=== PATIENT | female | born 1960 | race Caucasian/White ===

== ENCOUNTER 2023-02-13 15:18 | Outpatient (REF) | payer MEDICARE, MEDICAID, SELFPAY ==
[2023-02-13 15:40] LABS: Bilirubin Urine NEGATIVE (NEGATIVE); Blood Urine NEGATIVE (NEGATIVE); Clarity Urine CLEAR (CLEAR); Color Urine LT. YELLOW (YELLOW); Glucose Urine UA NEGATIVE (NEGATIVE); Ketones Urine NEGATIVE (NEGATIVE); Leukocyte Esterase Urine TRACE (NEGATIVE); Nitrite Urine NEGATIVE (NEGATIVE); Protein Urine NEGATIVE (NEG/TRACE); Urobilinogen Urine 0.2 EU/dL (0.2-1.0)
[2023-02-13 15:41] LABS: Urine Microscopic Indicated YES
[2023-02-13 15:48] LABS: Bacteria Urine NONE SEEN #/HPF (NONE SEEN); Mucus Urine NONE SEEN (NONE SEEN); RBC Urine NONE SEEN #/HPF (0-2); WBC Urine 0-2 #/HPF (NONE SEEN)
[2023-02-13 15:49] LABS: Cast Seen? NONE SEEN #/LPF (NONE SEEN); Crystals Seen? None Seen #/HPF (None Seen); Squamous Epithelial Cell Urine MODERATE #/LPF (NONE/RARE)
== END 2023-02-13 15:19 | disposition home or self-care (01) ==
LOC: LAB 15:18
PROVIDERS: PCP Family Medicine; Visit Provider Family Medicine
DX: N39.0 Urinary tract infection, site not specified (principal)
CPT/HCPCS: 81001

== ENCOUNTER 2023-06-03 15:32 | Outpatient (REF) | payer MEDICARE, MEDICAID, SELFPAY | END 2023-06-03 15:33 | disposition home or self-care (01) | LOC: LAB 15:32 | PROVIDERS: PCP Family Medicine; Visit Provider Family Medicine | DX: N39.0 Urinary tract infection, site not specified (principal) | CPT/HCPCS: 87086; 87150; 87186 ==

== ENCOUNTER 2024-01-07 15:33 | Emergency (ER) | payer MEDICARE, MEDICAID, SELFPAY ==
[2024-01-07 15:39] VITALS: BP 154/90; PULSE 70; TEMP 36.6; O2SAT 99; BMI 40.3
--- OUTSIDE RECORDS SUMMARY | 2024-01-07 15:49 | XMS_ITS | CCD ---
Author Organization [facility] Care Team Providers Care Dry Cleaner Hand Name Role Phone Shelby Winston Unavailable Fabrizio Vidalhanie Unavailable Germain Sainz MD Primary Care Provider SHARON HARRISON Referring Unavailable DEFGERMAIN TRAVIS Primary Care Unavailable DEFRANCE, DR GROVES Admitting Unavailable DEFRANCE, DR GROVES Attending Unavailable DEFRANCE, DR GROVES Primary Care Unavailable DEFRANCE, DR GROVES Consulting Unavailable DEFRANCE, DR GROVES Admitting Unavailable DEFRANCE, DR GROVES Attending Unavailable DEFRANCE, DR GROVES Primary Care Unavailable DEFRANCE, DR GROVES Consulting Unavailable DEFRANCE, DR GROVES Admitting Unavailable DEFRANCE, DR GROVES Attending Unavailable DEFRANCE, DR GROVES Primary Care Unavailable DEFRANCE, DR GROVES Consulting Unavailable DEFRANCE, DR GROVES Primary Care Unavailable HAY, DR BOGGS Admitting Unavailable HAY, DR BOGGS Attending Unavailable HAY, DR BOGGS Consulting Unavailable DEFRANCE, DR GROVES Primary Care Unavailable HAY, DR BOGGS Admitting Unavailable HAY, DR BOGGS Attending Unavailable GRECHNY, MARTY FAROOQ Consulting Unavailable DEFRANCE, DR GROVES Primary Care Unavailable HAY, DR BOGGS Admitting Unavailable HAY, DR BOGGS Attending Unavailable ZIEBER, DR RUSSELL Flynn Consulting Unavailable HAY, DR BOGGS Consulting Unavailable Fransisco Khalil Unavailable Unavailable Primary Care Provider Unavailabl e PROVIDER, UNKNOWN Admitting Unavailable PROVIDER, UNKNOWN Attending Unavailable Germain Sainz MD Primary Care Provider GERMAIN SAINZ Referring Unavailable DEFTHADDEUS, GERMAIN Camacho Primary Care Unavailable DEFGERMAIN TRAVIS Referring Unavailable DEFRANCE, GERMAIN Camacho Primary Care Unavailable DEFGERMAIN TRAVIS Referring Unavailable DEFRANCE, GERMAIN T Primary Care Unavailable DEFRANCE, GERMAIN Camacho Attending Unavailable DEFRANCE, GERMAIN Doug Referring Unavailable DEFRANCE, GERMAIN Doug Primary Care Unavailable DEFRANCE, GERMAIN Doug Attending Unavailable DEFRANCE, GERMAIN Camacho Referring Unavailable DEFRANCE, GERMAIN Doug Primary Care Unavailable DEFRANCE, GERMAIN Doug Attending Unavailable DEFRANCE, GERMAIN Doug Referring Unavailable DEFRANCE, GERMAIN Camacho Primary Care Unavailable TIFFANIE RAMOS Attending Unavailable DEFRANCE, GERMAIN Doug Referring Unavailable DEFRANCE, GERMAIN Camacho Primary Care Unavailable KRISSY MONTOYA Attending Unavailable DEFRANCE, GERMAIN oDug Referring Unavailable DEFRANCE, GERMAIN Camacho Primary Care Unavailable Medications Current Medications Medication Drug Class(es) Dates Sig (Normalized) Sig (Original) acetaminophen 500 mg oral tablet (4 sources) Start: 02-28-2023 take 2 tablets by mouth every six hours as needed for pain and headache and fever acetaminophen (MAPAP EXTRA STRENGTH) 500 mg tablet Take 2 tablets (1,000 mg total) by mouth every 6 (six) hours as needed for pain, headaches or fever. TAKE 2 TABLETS (1000MG) BY MOUTH EVERY 6 HOURS NEEDED (FOR A TEMP GREATER THAN 100 DEGREES OR PAIN) (MAX 8 PER DAY) 240 tablet 0 02/28/2023 Active bacitracin 0.5 unt/mg topical ointment (1 source) Start: 11-27-2021 End: 12-07-2021 bacitracin (ANTIBIOTIC) 500 UNIT/GM ointment Indications: Lesion of labia Apply topically 2 times daily. 28 g 2 11/27/2021 12/07/2021 Active busPIRone hydrochloride 15 mg oral tablet (13 sources) Start: 10-07-2022 take 1 tablet by mouth in the morning, then take 1 tablet by mouth at bedtime busPIRone (BUSPAR) 15 mg tablet Take 1 tablet (15 mg total) by mouth in the morning and 1 tablet (15 mg total) before bedtime. 0 10/07/2022 Active Start: 03-26-2021 take 1 tablet by luciano th in the morning, then take 1 tablet by mouth at bedtime busPIRone (BUSPAR) 10 mg tablet Take 1 tablet (10 mg total) by mouth in the morning and 1 tablet (10 mg total) before bedtime. 0 03/26/2021 Active busPIRone HCl Ac tive citalopram 40 mg oral tablet (9 sources) Serotonin Reuptake Inhibitor Start: 11-05-2021 citalopram (CELEXA) 40 MG tablet Citalopram [place] bromide Active 12 hr dextromethorphan hydrobromide 30 mg / guaiFENesin 600 mg extended release oral tablet (1 source) Uncompetitive E-vnfxtr-L-aspartate Receptor Antagonist, Sigma-1 Agonist Start: 08-21-2021 take 1 tablet by mouth every twelve hours Mucinex DM 30-600 MG 1 tablet as needed Orally every 12 hrs for 5 day(s) July, Active hydroCHLOROthiazide 25 mg / triamterene 37.5 mg oral capsule (1 source) Potassium-sparing Diuretic, Thiazide Diuretic Start: 09-28-2021 take 1 capsule by mouth once daily triamterene-hydro CHLOROthiazide (DYAZIDE) 37.5-25 MG per capsule Take 1 capsule by mouth daily 0 09/28/2021 Active hydrocortisone 25 mg/ml topical cream (4 sources) Corticosteroid Start: 05-27-2023 hydrocortisone (ANUSOL-HC) 2.5 % rectal cream Apply topically twice a day 28 g 5 05/27/2023 Active ibuprofen 800 mg oral tablet (4 sources) Nonsteroidal Anti-inflammatory Drug Start: 02-28-2023 take 1 tablet by mouth every six hours as needed for pain ibuprofen (MOTRIN) 800 mg tablet Take 1 tablet (800 mg total) by mouth every 6 (six) hours as needed for pain. 30 tablet 1 02/28/2023 Active lamoTRIgine 100 mg oral tablet (9 sources) Mood Stabilizer, Anti-epileptic Agent take 2 tablets by mouth once daily lamoTRIgine (LaMICtal) 100 mg tablet Take 2 tablets (200 mg total) by mouth nightly. 0 Active lamoTRIgine Acti ve levothyroxine sodium 0.075 mg oral tablet (9 sources) l-Thyroxine Start: 01-28-2023 take 1 tablet by mouth once daily levothyroxine (SYNTHROID, LEVOTHROID) 75 MCG tablet GIVE 1 TABLET BY MOUTH ONCE DAILY (730A) 90 tablet 1 01/28/2023 Active Start: 08-29-2021 take 1 tablet by luciano th once daily levothyroxine (SYNTHROID) 75 MCG tablet GIVE 1 TABLET BY MOUTH ONCE DAILY (730A) 0 08/29/2021 Active Levothyroxine So dium Active losartan potassium 50 mg oral tablet (14 sources) Angiotensin 2 Receptor Shorty Start: 03-13-2023 take 2 tablets by mouth in the morning losartan (COZAAR) 25 mg tablet Take 2 tablets (50 mg total) by mouth in the morning. 0 03/13/2023 Active Start: 03-13-2023 End: 06-14-2023 take 1 tablet by mouth in the morning losartan (COZAAR) 50 mg tablet Take 1 tablet (50 mg total) by mouth in the morning. 90 tablet 1 06/14/2023 Active Start: 08-29-2021 take 1 tablet by luciano th once daily losartan (COZAAR) 25 MG tablet Take 25 mg by mouth daily 0 08/29/2021 Active Losartan Potassi um Active lurasidone hydrochloride 60 mg oral tablet (9 sources) Atypical Antipsychotic Start: 03-05-2022 LATUDA 60 mg tablet tablet 1 tablet (60 mg total) once daily at bedtime. 0 03/05/2022 Active Start: 11-05-2021 LATUDA 80 MG T ABS tablet Latuda Active Melatonin (4 sources) Melatonin Active 24 hr metoprolol succinate 100 mg extended release oral tablet (10 sources) beta-Adrenergic Shorty Start: 02-26-2023 End: 06-14-2023 take 1 tablet by mouth every twenty-four hours in the morning metoprolol succinate XL (TOPROL XL) 100 mg 24 hr tablet Take 1 tablet (100 mg total) by mouth in the morning. 90 tablet 1 06/14/2023 Active Start: 09-28-2021 take 1 tablet by luciano th once daily metoprolol succinate (TOPROL XL) 100 MG extended release tablet Take 100 mg by mouth daily 0 09/28/2021 Active Metoprolol Succi jane Active miscellaneous medical supply misc (4 sources) Start: 10-19-2020 miscellaneous medical supply misc Indications: Traumatic skin ulcer, limited to breakdown of skin (CMS-HCC) Biatain silicone - Apply to wounds every 3 days or as needed. 1 each 1 10/19/2020 Active nitrofurantoin, macrocrystals 25 mg / nitrofurantoin, monohydrate 75 mg oral capsule (1 source) Nitrofuran Antibacterial Start: 06-06-2023 End: 06-13-2023 take 1 capsule by mouth in the morning, then take 1 capsule by mouth at bedtime nitrofurantoin, macrocrystal-monoh ydrate, (MACROBID) 100 mg capsule Take 1 capsule (100 mg total) by mouth in the morning and 1 capsule (100 mg total) before bedtime. Do all this for 7 days. 14 capsule 0 06/06/2023 06/13/2023 Active nystatin 100 unt/mg topical powder (4 sources) Polyene Antifungal Start: 11-19-2022 nystatin (NYSTOP) powder Apply topically 2 (two) times a day. 60 g 5 11/19/2022 Active Polyethylene Glycols (4 sources) Polyethylene Glycol Active predniSONE 20 mg oral tablet (1 source) Start: 08-21-2021 take 1 tablet by mouth twice daily at mealtime predniSONE 20 MG 1 tablet Orally twice a day with food for 5 days July, Active simvastatin 40 mg oral tablet (10 sources) HMG-CoA Reductase Inhibitor Start: 02-26-2023 End: 06-14-2023 take 1 tablet by mouth once daily simvastatin (ZOCOR) 40 mg tablet Take 1 tablet (40 mg total) by mouth nightly. 90 tablet 1 06/14/2023 Active Start: 09-28-2021 take 1 tablet by luciano th once daily simvastatin (ZOCOR) 40 MG tablet Take 40 mg by mouth nightly 0 09/28/2021 Active Simvastatin Acti ve SSD (4 sources) SSD Active sulfamethoxazole 800 mg / trimethoprim 160 mg oral tablet (1 source) Dihydrofolate Reductase Inhibitor Antibacterial, Sulfonamide Antimicrobial Start: End: take 1 tablet by mouth once in the morning sulfamethoxazole-t rimethoprim (BACTRIM DS) 800-160 mg per tablet Take 1 tablet by mouth in the morning and 1 tablet before bedtime. Do all this for 7 days. 14 tablet 0 06/06/2023 06/13/2023 Active tobramycin 3 mg/ml ophthalmic solution (1 source) Aminoglycoside Antibacterial Start: take 1 drop(s) into the eye(s) every four hours Tobramycin 0.3 % 1 drop into affected eye Ophthalmic every 4 hrs for 7 days May, Active Triamterene (4 sources) Potassium-sparing Diuretic Triamterene Active divalproex sodium 125 mg delayed release oral capsule (9 sources) Mood Stabilizer, Anti-epileptic Agent Start: take 3 capsules by mouth in the morning, then take 3 capsules by mouth at bedtime, then take 3 capsules by mouth twice daily divalproex sprinkle (DEPAKOTE SPRINKLE) 125 mg capsule Take 3 capsules (375 mg total) by mouth in the morning and 3 capsules (375 mg total) before bedtime. 3 pills bid. 0 04/10/2022 Active divalproex (DEPA KOTE SPRINKLE) 125 MG capsule Take 500 mg by mouth 2 times daily 0 Active Divalproex Sodiu m Active zinc oxide-hydrophilic wound dressing (TRIAD WOUND DRESSING) paste paste (4 sources) Start: 11-19-2022 zinc oxide-hyd rophilic wound dressing (TRIAD WOUND DRESSING) paste paste Apply to affected areas bid 170 g 5 11/19/2022 Active Problems Active Problems Problem Classification Problem Date Documented Da te Episodic/Chronic Chronic ulcer of skin (5 sources) Traumatic skin ulcer; Translations: [Non-pressure chronic ulcer of skin of other sites limited to breakdown of skin] Onset: 10-19-2020 07-20-2022 Chronic Developmental disorders (8 sources) Unspecified intellectual disabilities; Translations: [Intellectual disability] Onset: 01-02-2017 07-20-2022 Chronic Disorders of lipid metabolism (12 sources) Hyperlipidemia; Translations: [Hyperlipidemia, unspecified] Onset: 01-02-2017 07-20-2022 Chronic Essential hypertension (12 sources) Benign essential hypertension; Translations: [Essential (primary) hypertension] Onset: 01-02-2017 07-20-2022 Chronic Fever of unknown origin (1 source) Fever Onset: 12-24-2023 Episodic Genitourinary symptoms and ill-defined conditions (5 sources) Nocturnal enuresis; Translations: [Nocturnal enuresis] Onset: 01-02-2021 07-20-2022 Chronic Inflammation; infection of eye (except that caused by tuberculosis or sexually transmitteddisease) (1 source) Other mucopurulent conjunctivitis, left eye Episodic Mood disorders (5 sources) Episodic mood disorder; Translations: [Unspecified mood [affective] disorder] Onset: 01-02-2017 07-20-2022 Chronic Other aftercare (2 sources) Other exterminator helper termite (current) drug therapy; Translations: [OTH E/M ENGINEER CURRENT DRUG THERAPY] Onset: 10-06-2021 Episodic Other circulatory disease (1 source) Hemorrhage, not elsewhere classified Episodic Other female genital disorders (1 source) Lesion of labia; Translations: [Other specified noninflammatory disorders of vulva and perineum] Episodic Other gastrointestinal disorders (1 source) Dysphagia, oral phase; Translations: [Dysphagia, oral phase] Onset: 10-23-2023 Episodic Other nutritional; endocrine; and metabolic disorders (5 sources) Severe obesity; Translations: [Morbid (severe) obesity due to excess calories] Onset: 2016 07-20-2022 Chronic Other nutritional; endocrine; and metabolic disorders (1 source) Obesity, unspecified; Translations: [Obesity, unspecified] Onset: 11-20-2023 Chronic Other screening for suspected conditions (not mental disorders or infectious disease) (5 sources) Echocardiogram abnormal; Translations: [Abnormal findings on diagnostic imaging of heart and coronary circulation] Onset: 06-06-2022 07-20-2022 Episodic Other upper respiratory disease (1 source) Pain in throat Onset: 12-24-2023 Episodic Other upper respiratory infections (1 source) Acute maxillary sinusitis, unspecified; Translations: [Acute maxillary sinusitis, unspecified] Onset: 12-24-2023 Episodic Residual codes; unclassified (5 sources) Obstructive sleep apnea syndrome; Translations: [Obstructive sleep apnea (adult) (pediatric)] Onset: 2016 07-20-2022 Chronic Residual codes; unclassified (1 source) Obstructive sleep apnea (adult) (pediatric); Translations: [Obstructive sleep apnea (adult) (pediatric)] Onset: 2016 Chronic Residual codes; unclassified (1 source) Sleep apnea Onset: 11-20-2023 Chronic Thyroid disorders (7 sources) Acquired hypothyroidism; Translations: [Hypothyroidism, unspecified] Onset: 01-02-2017 07-20-2022 Chronic Unclassified (1 source) PERSONAL HISTORY OF COVID-19; Translations: [PERSONAL HISTORY OF COVID-19] Onset: 10-06-2021 Unclassified (1 source) Annual Exam Onset: 10-18-2023 Unclassified (1 source) Routine Check up Onset: 03-19-2023 Urinary tract infections (4 sources) Urinary tract infection, site not specified; Translations: [UTI SITE NOT SPECIFIED] Onset: 05-09-2022 Episodic Past or Other Problems Problem Classification Problem Date Documented Date Episodic/Chronic Chronic obstructive pulmonary disease and bronchiectasis (1 source) Bronchitis, not specified as acute or chronic Onset: 08-21-2021 Resolved: 08-21-2021 Episodic E Codes: Fall (1 source) Unspecified fall, initial encounter; Translations: [UNSPECIFIED FALL INITIAL ENCOUNTER] Onset: 10-06-2021 Episodic Fluid and electrolyte disorders (2 sources) Hypo-osmolality and hyponatremia; Translations: [Dehydration] Onset: 06-14-2021 Episodic Immunizations and screening for infectious disease (1 source) Contact with and (suspected) exposure to other viral communicable diseases Onset: 08-21-2021 Resolved: 08-21-2021 Episodic Inflammatory diseases of female pelvic organs (5 sources) Acute vulvitis; Translations: [Ulceration of vulva] Onset: 06-13-2021 Episodic Mood disorders (4 sources) Mood disorders Onset: 03-19-2023 Resolved: 06-18-2023 03-19-2023 Other female genital disorders (1 source) Other specified noninflammatory disorders of vulva and perineum Onset: 06-12-2021 Resolved: 06-12-2021 Episodic Residual codes; unclassified (5 sources) Edema, generalized; Translations: [Generalized edema] Onset: 01-22-2017 07-20-2022 Episodic Skin and subcutaneous tissue infections (5 sources) Cellulitis of left lower limb; Translations: [Cellulitis of left lower limb] Onset: 03-20-2021 07-20-2022 Episodic Superficial injury; contusion (5 sources) Contusion of right knee, initial encounter; Translations: [Contusion of right front wall of thorax, initial encounter] Onset: 10-05-2021 Episodic Unclassified (4 sources) Onset: 08-01-2020 08-01-2020 Results Test Name Value Interpretation Reference Range Facility CBC AND AUTO DIFFon 11-20-19 ABSOLUTE BASOPHIL 0.0 X10E9/L Normal 0.0-0.2 [facility] Comment on above: Performed By: #### 2 345-7, 80354-2, LIVR, 4086-5, CBCA #### [facility] ([id number]) [address], [address] [place] [address] ABSOLUTE NEUTROPHIL 3.3 X10E9/L Normal 1.5-6.6 [facility] Comment on above: Performed By: #### 2 345-7, 20375-4, LIVR, 6-5, CBCA #### [facility] ([id number]) [address], [address] [place] [address] Basophils/100 WBC (Bld) 0.5 % Normal [facility] Comment on above: Performed By: #### 2 345-7, 67359-5, LIVR, 4085-5, CBCA #### [facility] ([id number]) [address], [address] [place] [address] Eosinophils (Bld) [#/Vol] 0.1 10*3/uL Normal 0.0-0.4 [facility] Comment on above: Performed By: #### 2 345-7, 71027-0, LIVR, 4085-5, CBCA #### [facility] ([id number]) [address], [address] [place] [address] Eosinophils/100 WBC (Bld) 1.6 % Normal [facility] Comment on above: Performed By: #### 2 345-7, 79035-8, LIVR, 4085-5, CBCA #### [facility] ([id number]) [address], [address] [place] [address] Erythrocyte distribution width (RBC) [Ratio] 14.5 % Normal 11.5-15.0 [facility] Comment on above: Performed By: #### 2 345-7, 87256-7, LIVR, 4085-5, CBCA #### [facility] ([id number]) [address], [address] [place] [address] Hematocrit (Bld) [Volume fraction] 38.3 % Normal 35-47 [facility] Comment on above: Performed By: #### 2 345-7, 45640-7, LIVR, 4086-5, CBCA #### [facility] ([id number]) [address], [address] [place] [address] Hemoglobin (Bld) [Mass/Vol] 12.4 g/dL Normal 11.7-15.5 [facility] Comment on above: Performed By: #### 2 345-7, 36936-2, LIVR, 6-5, CBCA #### [facility] ([id number]) [address], [address] [place] [address] Lymphocytes (Bld) [#/Vol] 1.7 10*3/uL Normal 1.0-3.5 [facility] Comment on above: Performed By: #### 2 345-7, 38956-7, LIVR, 6-5, CBCA #### [facility] ([id number]) [address], [address] [place] [address] Lymphocytes/100 WBC (Bld) 29.8 % Normal [facility] Comment on above: Performed By: #### 2 345-7, 07112-6, LIVR, 4085-5, CBCA #### [facility] ([id number]) [address], [address] [place] [address] MCH (RBC) [Entitic mass] 28.1 pg Normal 27-34 [facility] Comment on above: Performed By: #### 2 345-7, 07005-2, LIVR, 4086-5, CBCA #### [facility] ([id number]) [address], [address] [place] [address] MCHC (RBC) [Mass/Vol] 32.4 g/dL Normal 32-36 [facility] Comment on above: Performed By: #### 2 345-7, 16812-3, LIVR, 4086-5, CBCA #### [facility] ([id number]) [address], [address] [place] [address] MCV (RBC) [Entitic vol] 87 fL Normal 80-100 [facility] Comment on above: Performed By: #### 2 345-7, 00546-5, LIVR, 4086-5, CBCA #### [facility] ([id number]) [address], [address] [place] [address] Monocytes (Bld) [#/Vol] 0.5 10*3/uL Normal 0-0.9 [facility] Comment on above: Performed By: #### 2 345-7, 56656-4, LIVR, 4085-5, CBCA #### [facility] ([id number]) [address], [address] [place] [address] Monocytes/100 WBC (Bld) 9.1 % Normal [facility] Comment on above: Performed By: #### 2 345-7, 31687-6, LIVR, 4085-5, CBCA #### [facility] ([id number]) [address], [address] [place] [address] Neutrophils/100 WBC (Bld) 59.0 % Normal [facility] Comment on above: Performed By: #### 2 345-7, 69176-8, LIVR, 4085-5, CBCA #### [facility] ([id number]) [address], [address] [place] [address] Platelet mean volume (Bld) [Entitic vol] 7.3 fL Normal 7-12 [facility] Comment on above: Performed By: #### 2 345-7, 05770-1, LIVR, 4086-5, CBCA #### [facility] ([id number]) [address], [address] [place] [address] Platelets (Bld) [#/Vol] 302 10*3/uL Normal 150-450 [facility] Comment on above: Performed By: #### 2 345-7, 99450-2, LIVR, 4086-5, CBCA #### [facility] ([id number]) [address], [address] [place] [address] RBC COUNT 4.41 X10E12/L Normal 3.80-5.20 [facility] Comment on above: Performed By: #### 2 345-7, 61777-9, LIVR, 4086-5, CBCA #### [facility] ([id number]) [address], [facility] [address] [place] [address] WBC (Bld) [#/Vol] 5.6 10*3/uL Normal 4.0-11.0 [facility] Comment on above: Performed By: #### 2 345-7, 27949-5, LIVR, 408-5, CBCA #### [facility] ([id number]) [address], [address] [place] [address] GLUCOSEon 11-20-2023 Glucose [Mass/Vol] 94 mg/dL Normal 65-99 [facility] Comment on above: Performed By: #### 2 345-7, 04572-1, LIVR, 4085-5, CBCA #### [facility] ([id number]) [address], [address] [place] [address] LIVER PANELon 11-20-2023 Albumin [Mass/Vol] 4.2 g/dL Normal 3.2-5.3 [facility] Comment on above: Performed By: #### 2 345-7, 67378-1, LIVR, 4086-5, CBCA #### [facility] ([id number]) [address], [address] [place] [address] ALP [Catalytic activity/Vol] 64 U/L Normal 39-130 [facility] Comment on above: Performed By: #### 2 345-7, 57529-0, LIVR, 4086-5, CBCA #### [facility] ([id number]) [address], [address] [place] [address] ALT [Catalytic activity/Vol] 15 U/L Normal 0-31 [facility] Comment on above: Performed By: #### 2 345-7, 26207-4, LIVR, 4086-5, CBCA #### [facility] ([id number]) [address], [address] [place] [address] AST [Catalytic activity/Vol] 20 U/L Normal 0-41 [facility] Comment on above: Performed By: #### 2 345-7, 31791-9, LIVR, 4086-5, CBCA #### [facility] ([id number]) [address], [address] [place] [address] Bilirubin [Mass/Vol] 0.5 mg/dL Normal 0.3-1.2 [facility] Comment on above: Performed By: #### 2 345-7, 89552-1, LIVR, 4086-5, CBCA #### [facility] ([id number]) [address], [address] [place] [address] Bilirubin.direct [Mass/Vol] 0.1 mg/dL Normal 0.0-0.4 [facility] Comment on above: Performed By: #### 2 345-7, 68955-9, LIVR, 4086-5, CBCA #### [facility] ([id number]) [address], [address] [place] [address] Protein [Mass/Vol] 7.1 g/dL Normal 6.0-8.0 [facility] Comment on above: Performed By: #### 2 345-7, 51113-1, LIVR, 4086-5, CBCA #### [facility] ([id number]) [address], [address] [place] [address] Lipid 1996 panelon 08-21-202 4 Cholesterol [Mass/Vol] 195 mg/dL Normal 150-200 [facility] Comment on above: Performed By: #### 2 345-7, 82149-2, LIVR, 4086-5, CBCA #### [facility] ([id number]) [address], [address] [place] [address] Cholesterol in HDL [Mass/Vol] 65 mg/dL Normal >39 [facility] Comment on above: Result Comment: HDL <40 mg/dL - High Risk HDL > or = 40mg/dL- Desirable HDL >60 mg/dL - Negative Risk Performed By: #### 2 345-7, 28592-8, LIVR, 4086-5, CBCA #### [facility] ([id number]) [address], [address] [place] [address] Cholesterol in LDL [Mass/Vol] 103 mg/dL Normal <130 [facility] Comment on above: Result Comment: LDL <100 mg/dL - Desirable LDL >160 mg/dL - High Risk Performed By: #### 2 345-7, 79926-2, LIVR, 4086-5, CBCA #### [facility] ([id number]) [address], [address] [place] [address] Cholesterol in VLDL [Mass/Vol] 27 mg/dL Normal 0-30 [facility] Comment on above: Performed By: #### 2 345-7, 23181-7, LIVR, 4086-5, CBCA #### [facility] ([id number]) [address], [address] [place] [address] CHOLESTEROL:HDL 3.0 Normal 1.0-5.0 [facility] Comment on above: Performed By: #### 2 345-7, 14364-2, LIVR, 4086-5, CBCA #### [facility] ([id number]) [address], [address] [place] [address] Triglyceride [Mass/Vol] 134 mg/dL Normal 27-150 [facility] Comment on above: Performed By: #### 2 345-7, 06882-9, LIVR, 4086-5, CBCA #### [facility] ([id number]) [address] [place] [address] Valproate [Mass/Vol]on 11-19 VALPROIC ACID 46 ug/mL Low 50-100 [facility] Comment on above: Performed By: #### 2 345-7, 75390-0, LIVR, 4086-5, CBCA #### [facility] ([id number]) [address], [address] [place] [address] FL SWALLOW MOTILITY FUNCTION on 10-23-2023 FL SWALLOW MOTILITY FUNCTION FL SWALLOW MOTILITY FUNCTION History: Choking episodes. Dysphasia. Exam/Technique: The patient ingested multiple preparations of barium under direct fluoroscopic observation. The examination was videotaped. The study was performed in conjunction with the speech pathology department. Findings: 2.8 minutes of fluoroscopy time was utilized. 16 fluoroscopic images obtained Patient demonstrated pocketing of barium pudding. Additional swallows with barium coated fruit resulted in less pocketing. No episodes of penetration or aspiration demonstrated with liquid or solid consistencies. IMPRESSION: * No episodes of penetration or aspiration. * Pocketing of content within the right side of the mouth * Please also see the speech pathology report for additional information and recommendations. Finalized by Matthew Nguyễn DO on 10/23/2023 11:37 AM Normal [facility] COMPREHENSIVE METABOLIC PANE Tommy 04-02-2023 Albumin [Mass/Vol] 4.1 g/dL Normal 3.2-5.3 [facility] Comment on above: Performed By: #### C MP #### [facility] ([id number]) [address], [address] [place] [address] ALP [Catalytic activity/Vol] 60 U/L Normal 39-130 [facility] Comment on above: Performed By: #### C MP #### [facility] ([id number]) [address], [address] [place] [address] ALT [Catalytic activity/Vol] 10 U/L Normal 0-31 [facility] Comment on above: Performed By: #### C MP #### [facility] ([id number]) [address], [address] [place] [address] Anion gap [Moles/Vol] 9 mmol/L Normal 5-15 [facility] Comment on above: Performed By: #### C MP #### [facility] ([id number]) [address], [address] [place] [address] AST [Catalytic activity/Vol] 15 U/L Normal 0-41 [facility] Comment on above: Performed By: #### C MP #### [facility] ([id number]) [address], [address] [place] [address] Bilirubin [Mass/Vol] 0.4 mg/dL Normal 0.3-1.2 [facility] Comment on above: Performed By: #### C MP #### [facility] ([id number]) [address], [address] [place] [address] Calcium [Mass/Vol] 9.5 mg/dL Normal 8.5-10.5 [facility] Comment on above: Performed By: #### C MP #### [facility] ([id number]) [address], [address] [place] [address] Chloride [Moles/Vol] 100 mmol/L Normal 98-109 [facility] Comment on above: Performed By: #### C MP #### [facility] ([id number]) [address], [address] [place] [address] CO2 [Moles/Vol] 27 mmol/L Normal 22-32 [facility] Comment on above: Performed By: #### C MP #### [facility] ([id number]) [address], [address] [place] [address] Creatinine [Mass/Vol] 1.27 mg/dL High 0.40-1.00 [facility] Comment on above: Result Comment: METH OD TRACEABLE TO IDMS STANDARD Performed By: #### C MP #### [facility] ([id number]) [address], [address] [place] [address] GFR/1.73 sq M.predicted among non-blacks MDRD (S/P/Bld) [Vol rate/Area] 48 mL/min/{1.73_m2} Low >59 [facility] Comment on above: Result Comment: Reported eGFR is based on the CKD-EPI 2020 equation that does not use a race coefficient. Performed By: #### C MP #### [facility] ([id number]) [address], [address] [place] [address] Glucose [Mass/Vol] 95 mg/dL Normal 65-99 [facility] Comment on above: Performed By: #### C MP #### [facility] ([id number]) [address] [place] [address] Potassium [Moles/Vol] 4.7 mmol/L Normal 3.5-5.0 [facility] Comment on above: Performed By: #### C MP #### [facility] ([id number]) [address], [address] [place] [address] Protein [Mass/Vol] 7.0 g/dL Normal 6.0-8.0 [facility] Comment on above: Performed By: #### C MP #### [facility] ([id number]) [address], [address] [place] [address] Sodium [Moles/Vol] 136 mmol/L Normal 134-146 [facility] Comment on above: Performed By: #### C MP #### [facility] ([id number]) [address], [address] [place] [address] Urea nitrogen [Mass/Vol] 15 mg/dL Normal 5-27 [facility] Comment on above: Performed By: #### C MP #### [facility] ([id number]) [address], [address] [place] [address] Progress Noteson 07-20-2022 Pan Dumper Authentication Interface Message Text ----- Wednesday, July 20, 2022 at 10:18:08 AM ----- ----- Provider: Jerrica Rodriguez DDS -- Clinic: [place] [address] ----- OR EVALUATION Patient presents for evaluation to determine best course of treatment due to history of Hypertension, Episodic mood disorder, MAZIN, intellectual disability. Patient is accompanied by caregiver for today's appointment. Patient partially cooperated for a partial intraoral exam. Clinical findings: Decay, Gingivitis and Missing teeth It is best suited that this patient have full comprehensive examination, radiographs and treatment completed in the OR setting. Explained that the patient will be added to our OR waiting list following receipt of signed general consent form, and the legal guardian will be contacted once a time slot becomes available. Legal Guardian: Legal Guardian: Inna Hill Beater Out: Haleigh Rich , Ext. 110 NOTE: Patient will need restorations and dental cleaning. Next Visit: OR Normal The [employer] [facility] UA (CLEAN/CATCH) SUPPORT ANALYST/MICRO I F IND.on 05-09-2022 Bilirubin Ql (U) Negative Normal NEGATIVE [facility] Comment on above: Performed By: #### U ACSIND #### Laboratory [address] [place] [address] Dr. Haseeb Novoa Clarity (U) CLEAR Normal CLEAR The Comment on above: Performed By: #### U ACSIND #### Laboratory [address] [address] [address] Haseeb Novoa Color (U) LT. YELLOW Normal YELLOW [facility] Comment on above: Performed By: #### U ACSIND #### Laboratory [address] [address] [address] Haseeb Novoa Glucose Ql (U) Negative Normal NEGATIVE [facility] Comment on above: Performed By: #### U ACSIND #### Laboratory [address] [address] [address] Haseeb Novoa Hemoglobin Ql (U) Negative Normal NEGATIVE [facility] Comment on above: Performed By: #### U ACSIND #### Laboratory [address] [address] [address] Haseeb Novoa Ketones Ql (U) Negative Normal NEGATIVE [place] Comment on above: Performed By: #### U ACSIND #### Laboratory [address] [address] [address] Haseeb Novoa LEUKOCYTES Negative Normal NEGATIVE [facility] Comment on above: Performed By: #### U ACSIND #### Laboratory [address] [address] [address] Haseeb Novoa Nitrite Ql (U) Negative Normal NEGATIVE [place] Comment on above: Performed By: #### U ACSIND #### Laboratory [address] [address] [address] Haseeb Novoa pH (U) 6.0 [pH] Normal 5-9 The Comment on above: Performed By: #### U ACSIND #### Laboratory [address] [address] [address] Haseeb Novoa SPEC GRAVITY 1.010 Normal 1.005-<=1.025 [facility] Comment on above: Performed By: #### U ACSIND #### Laboratory [address] [address] [address] Haseeb Novoa UA PROTEIN Negative Normal NEGATIVE/ TRACE The Comment on above: Performed By: #### U ACSIND #### Laboratory [address] [address] [address] Haseeb Novoa UR MICRO IND NOT INDICATED Normal [facility] Comment on above: Performed By: #### U ACSIND #### Laboratory [address] [place] [address] Dr. Haseeb Novoa Urobilinogen Qn (U) 0.2 {Buddy'U}/dL Normal 0.2 - 1. 0 [facility] Comment on above: Performed By: #### U ACSIND #### Laboratory [address] [place] [address] Dr. Haseeb Novoa Cult,Genitalon 11-30-2021 Cult,Genital Specimen Description .VAGINA Culture NORMAL URO-GENITAL MIA NEGATIVE FOR NEISSERIA GONORRHOEAE Report Status FINAL 11/30/2021 Normal [facility] Comment on above: Performed By: #### G EC #### [facility] [address] [place] [address] Type Inspector: Asael Kenney MD [facility] [address] [place], [place] [address] Type Inspector: Germain Villafuerte MD CULTURE URINEon 10-26-2021 CULTURE URINE Isolate 1 Proteus mirabilis 20,000 cfu/mL of ORGANISM 1 Proteus mirabilis ANTIBIOTIC M.I.C RX STATUS Ampicillin <=2 S F Ampicillin/Sulbactam <=2 S F Piperacillin/Tazobac rich <=4 S F Cefazolin <=4 S F Ceftazidime <=1 S F Ceftriaxone <=1 S F Ertapenem <=0.5 S F Imipenem 1 S F Amikacin <=2 S F Gentamicin <=1 S F Tobramycin <=1 S F Ciprofloxacin <=0.25 S F Levofloxacin <=0.12 S F Nitrofurantoin 128 R F Trimethoprim/Sulfame thoxazole <=20 S F Normal The Comment on above: Performed By: #### U RCX #### Laboratory [address] [place] [address] Dr. Haseeb Novoa UA (CLEAN/CATCH) MICROSCOPIC IF INDICATEon 10-23-2021 Bilirubin Ql (U) Negative Normal NEGATIVE [facility] Comment on above: Performed By: #### U KARENA UMICRO #### Laboratory [address] [address] [address] Haseeb Novoa Clarity (U) CLEAR Normal CLEAR The Comment on above: Performed By: #### U KARENA UMICRO #### Laboratory [address] [address] [address] Haseeb Novoa Color (U) YELLOW Normal YELLOW The Comment on above: Performed By: #### U KARENA UMICRO #### Laboratory [address] [address] [address] Haseeb Novoa Glucose Ql (U) Negative Normal NEGATIVE [facility] Comment on above: Performed By: #### Kendal THURSTON UMICRO #### Laboratory [address] [place] [address] Dr. Haseeb Novoa Hemoglobin Ql (U) Negative Normal NEGATIVE The [facility] Comment on above: Performed By: #### Kendal THURSTON UMICRO #### Laboratory [address] [place] [address] Dr. Haseeb Novoa Ketones Ql (U) TRACE Abnormal NEGATIVE [facility] Comment on above: Performed By: #### TITO BENNETTICRO #### Laboratory [address] [place] [address] Dr. Haseeb Novoa LEUKOCYTES SMALL Abnormal NEGATIVE The Comment on above: Performed By: #### Kendal THURSTON UMICRO #### Laboratory [address] [address] [address] Haseeb Novoa Nitrite Ql (U) Negative Normal NEGATIVE [facility] Comment on above: Performed By: #### TITO BENNETTICRO #### Laboratory [address] [place] [address] Dr. Haseeb Novoa pH (U) 6.5 [pH] Normal 5-9 The Comment on above: Performed By: #### Kendal THURSTON UMICRO #### Laboratory [address] [place] [address] Dr. Haseeb Novoa SPEC GRAVITY 1.020 Normal 1.005-<=1.025 [facility] Comment on above: Performed By: #### TITO BENNETTICRO #### Laboratory [address] [place] [address] Dr. Haseeb Novoa UA PROTEIN Negative Normal NEGATIVE/ TRACE The Comment on above: Performed By: #### TITO BENNETTICRO #### Laboratory [address] [place] [address] Dr. Haseeb Novoa UR MICRO IND INDICATED Normal The Comment on above: Performed By: #### TITO BENNETTICRO #### Laboratory [address] [place] [address] Dr. Haseeb Novoa Urobilinogen Qn (U) 1.0 {Buddy'U}/dL Normal 0.2 - 1. 0 [facility] Comment on above: Performed By: #### TITO BENNETTICRO #### Laboratory [address] [place] [address] Dr. Haseeb Novoa URINE MICROSCOPIC ONLYon BACTERIA TRACE Abnormal NONE SEEN The Comment on above: Performed By: #### TITO BENNETTICRO #### Laboratory [address] [place] [address] Dr. Haseeb Novoa Bacteria identified Cx Nom (U) INDICATED Normal The Comment on above: Performed By: #### TITO BENNETTICRO #### Laboratory [address] [place] [address] Dr. Haseeb Novoa CAST NONE SEEN Normal NONE SEEN The Comment on above: Performed By: #### TITO BENNETTICRO #### Laboratory [address] [place] [address] Dr. Haseeb Novoa Crystals LM Nom (Urine sed) NONE SEEN Normal NONE SEEN [facility] Comment on above: Performed By: #### TITO BENNETTICRO #### Laboratory [address] [place] [address] Dr. Haseeb Novoa Epithelial cells LM Ql (Urine sed) FEW Abnormal NONE SEEN /RARE The Comment on above: Performed By: #### U KARENA UMICRO #### Laboratory [address] [address] [address] Haseeb Novoa MUCOUS NONE SEEN Normal NONE SEEN The Comment on above: Performed By: #### U ARMLINETTE UMICRO #### Laboratory [address] [address] [address] Haseeb Novoa RBC 0-2 Normal 0-2 [facility] Comment on above: Performed By: #### U ARMICR UMICRO #### Laboratory [address] [address] [address] Haseeb Novoa WBC 2-5 Abnormal NONE SEEN The Comment on above: Performed By: #### U ARMICR UMICRO #### Laboratory [address] [address] [address] Haseeb Novoa XR RIBS RT PA Alex 2 XR RIBS RT PA CH EXAMINATION: XR RIBS RT PA CH HISTORY: History of fall , acute weakness COMPARISON: XR chest 03/19/2020 FINDINGS: LUNGS: No significant pulmonary parenchymal abnormalities. PLEURA: No pneumothorax, effusion, or pleural thickening. MEDIASTINUM: No visible mass or adenopathy. CARDIAC: No cardiomegaly or cardiac silhouette abnormality. RIBS: Normal. No significant arthropathy or acute abnormality. OTHER: Negative. IMPRESSION: 1. No acute cardiopulmonary process. 2. No visible rib fracture or lesion. Electronically authenticated by: RUSSELL MEJIA Date: 2021-10-05 10:54 Normal The COVID Quick Testingon 2021 Result Negative [employer] Other CULTURE URINEon 07-06-2021 CULTURE URINE Culture Observations: LIGHT GROWTH OF MIXED GENITAL MIA. NO POTENTIAL PATHOGENS SEEN. Normal The Comment on above: Performed By: #### U ACSIND UMICRO #### Laboratory [address] [address] [address] Haseeb Novoa UA (CLEAN/CATCH) SUPPORT ANALYST/MICRO I F IND.on 07-06-2021 Bilirubin Ql (U) Negative Normal NEGATIVE [facility] Comment on above: Performed By: #### U ACSIND, UMICRO #### Laboratory [address] [address] [address] Haseeb Novoa Clarity (U) CLEAR Normal CLEAR [facility] Comment on above: Performed By: #### U ACSIND, UMICRO #### Laboratory [address] [address] [address] Haseeb Novoa Color (U) LT. YELLOW Normal YELLOW The Comment on above: Performed By: #### U ACSIND, UMICRO #### Laboratory [address] [address] [address] Haseeb Novoa Glucose Ql (U) Negative Normal NEGATIVE [facility] Comment on above: Performed By: #### U ACSIND, UMICRO #### Laboratory [address] [place] [address] Dr. Haseeb Novoa Hemoglobin Ql (U) TRACE-INTACT Abnormal NEGATIVE [facility] Comment on above: Performed By: #### U ACSIND, UMICRO #### Laboratory [address] [place] [address] Dr. Haseeb Novoa Ketones Ql (U) TRACE Abnormal NEGATIVE [place] Comment on above: Performed By: #### U ACSIND, UMICRO #### Laboratory [address] [place] [address] Dr. Haseeb Novoa LEUKOCYTES SMALL Abnormal NEGATIVE [facility] Comment on above: Performed By: #### U ACSIND, UMICRO #### Laboratory [address] [place] [address] Dr. Haseeb Novoa Nitrite Ql (U) Negative Normal NEGATIVE [place] Comment on above: Performed By: #### U ACSIND, UMICRO #### Laboratory [address] [address] [address] Haseeb Novoa pH (U) 6.5 [pH] Normal 5-9 [facility] Comment on above: Performed By: #### U ACSIND, UMICRO #### Laboratory [address] [place] [address] Dr. Haseeb Novoa SPEC GRAVITY 1.025 Normal 1.005-<=1.025 [facility] Comment on above: Performed By: #### U ACSILYA, UMICRO #### Laboratory [address] [place] [address] Dr. Haseeb Novoa UA PROTEIN Negative Normal NEGATIVE/ TRACE The Comment on above: Performed By: #### U ACSILYA, UMICRO #### Laboratory [address] [place] [address] Dr. Haseeb Novoa UR MICRO IND INDICATED Normal The Comment on above: Performed By: #### U ACSILYA UMICRO #### Laboratory [address] [place] [address] Dr. Haseeb Novoa Urobilinogen Qn (U) 0.2 {Buddy'U}/dL Normal 0.2 - 1. 0 [facility] Comment on above: Performed By: #### U ACSILYA UMICRO #### Laboratory [address] [place] [address] Dr. Haseeb Novoa URINE MICROSCOPIC ONLYon BACTERIA TRACE Abnormal NONE SEEN [facility] Comment on above: Performed By: #### U ACSILYA, UMICRO #### Laboratory [address] [place] [address] Dr. Haseeb Novoa Bacteria identified Cx Nom (U) INDICATED Normal The Comment on above: Performed By: #### U ACSILYA UMICRO #### Laboratory [address] [place] [address] Dr. Haseeb Novoa CAST NONE SEEN Normal NONE SEEN The Comment on above: Performed By: #### U ACSILYA, UMICRO #### Laboratory [address] [place] [address] Dr. Haseeb Novoa Crystals LM Nom (Urine sed) NONE SEEN Normal NONE SEEN [facility] Comment on above: Performed By: #### U ACSIND, UMICRO #### Laboratory [address] [place] [address] Dr. Haseeb Novoa Epithelial cells LM Ql (Urine sed) RARE Normal NONE SEEN /RARE The Comment on above: Performed By: #### U ACSILYA UMICRO #### Laboratory [address] [place] [address] Dr. Haseeb Novoa MUCOUS NONE SEEN Normal NONE SEEN The Comment on above: Performed By: #### U ACSILYA, UMICRO #### Laboratory [address] [place] [address] Dr. Haseeb Novoa RBC NONE SEEN Abnormal 0-2 The Comment on above: Performed By: #### U ACSILYA, UMICRO #### Laboratory [address] [place] [address] Dr. Haseeb Novoa WBC 2-5 Abnormal NONE SEEN The Comment on above: Performed By: #### U ACSILYA ICRO #### Laboratory [address] [place] [address] Dr. Haseeb Novoa CBC AUTO DIFFon 06-13-2021 BASO # 0.1 103/ul Normal 0.0-0.1 [facility] Comment on above: Performed By: #### C BC #### Laboratory [address] [place] [address] Dr. Haseeb Novoa Basophils/100 WBC (Bld) 0.5 % Normal 0.2-2.0 [facility] Comment on above: Performed By: #### C BC #### Laboratory [address] [place] [address] Dr. Haseeb Novoa EO # 0.2 103/ul Normal 0.0-0.7 The Comment on above: Performed By: #### C BC #### Laboratory [address] [place] [address] Dr. Haseeb Novoa Eosinophils/100 WBC (Bld) 1.4 % Normal 0.9-7.0 The Comment on above: Performed By: #### C BC #### Laboratory [address] [place] [address] Dr. Haseeb Novoa Erythrocyte distribution width (RBC) [Ratio] 14.8 % Normal 11.0-15.0 [facility] Comment on above: Performed By: #### C BC #### Laboratory [address] [address] [address] Haseeb Novoa Hematocrit (Bld) [Volume fraction] 36.5 % Normal 36.0-48.0 [facility] Comment on above: Performed By: #### C BC #### Laboratory [address] [address] [address] Haseeb Novoa Hemoglobin (Bld) [Mass/Vol] 11.8 g/dL Critically low 12.0-16.0 [facility] Comment on above: Performed By: #### C BC #### Laboratory [address] [place] [address] Dr. Haseeb Novoa IG # 0.04 10e3/ul Critically high 0.00-0.03 [facility] Comment on above: Performed By: #### C BC #### Laboratory [address] [place] [address] Dr. Haseeb Novoa IG % 0.4 % Normal 0.0-0.5 [facility] Comment on above: Performed By: #### C BC #### Laboratory [address] [address] [address] Haseeb Novoa LYMPH # 3.5 103/ul Normal 1.2-3.8 [facility] Comment on above: Performed By: #### C BC #### Laboratory [address] [place] [address] Dr. Haseeb Noova Lymphocytes/100 WBC (Bld) 32.9 % Normal 20.5-60.0 [facility] Comment on above: Performed By: #### C BC #### Laboratory [address] [place] [address] Dr. Haseeb Novoa MANUAL DIFF REQ NO Normal [facility] Comment on above: Performed By: #### C BC #### Laboratory [address] [place] [address] Dr. Haseeb Novoa MCH (RBC) [Entitic mass] 28.6 pg Normal 26.7-34.0 [facility] Comment on above: Performed By: #### C BC #### Laboratory [address] [address] [address] Haseeb Novoa MCHC (RBC) [Mass/Vol] 32.3 g/dL Normal 29.9-35.2 [facility] Comment on above: Performed By: #### C BC #### Laboratory [address] [address] [address] Haseeb Novoa MCV (RBC) [Entitic vol] 88.4 fL Normal 81.0-99.0 [facility] Comment on above: Performed By: #### C BC #### Laboratory [address] [address] [address] Haseeb Novoa MONO # 0.9 103/ul Critically high 0.3-0.8 [facility] Comment on above: Performed By: #### C BC #### Laboratory [address] [place] [address] Dr. Haseeb Novoa Monocytes/100 WBC (Bld) 8.8 % Normal 1.7-12.0 [facility] Comment on above: Performed By: #### C BC #### Laboratory [address] [address] [address] Haseeb Novoa NEUT # 6.0 103/ul Normal 1.4-6.5 [facility] Comment on above: Performed By: #### C BC #### Laboratory [address] [place] [address] Dr. Haseeb Novoa Neutrophils/100 WBC (Bld) 56.0 % Normal 43.0-75.0 The Comment on above: Performed By: #### C BC #### Laboratory [address] [address] [address] Haseeb Novoa Platelet mean volume (Bld) [Entitic vol] 8.3 fL Critically low 9.5-13.5 [facility] Comment on above: Performed By: #### C BC #### Laboratory [address] [place] [address] Dr. Haseeb Novoa PLT 340 103/ul Normal 150-450 The Comment on above: Performed By: #### C BC #### Laboratory [address] [place] [address] Dr. Haseeb Novoa RBC 4.13 106/ul Critically low 4.20-5.40 [facility] Comment on above: Performed By: #### C BC #### Laboratory [address] [address] [address] Haseeb Novoa WBC 10.7 103/ul Normal 4.0-11.0 [facility] Comment on above: Performed By: #### C BC #### Laboratory [address] [place] [address] Dr. Haseeb Novoa LACTATE/LACTIC ACIDon 2021 Lactate [Moles/Vol] 2.5 mmol/L Critically high 0.7-2.0 [facility] Comment on above: Performed By: #### L ACT #### Laboratory [address] [place] [address] Dr. Haseeb Novoa PROF CHEM 8 (BAS METB)on Anion gap [Moles/Vol] 13.2 mmol/L Normal [facility] Comment on above: Performed By: #### U ACSILYA UMICRO #### Laboratory [address] [place] [address] Dr. Haseeb Novoa Calcium [Mass/Vol] 9.1 mg/dL Normal 8.4-10.2 [facility] Comment on above: Performed By: #### U ACSIND, UMICRO #### Laboratory [address] [place] [address] Dr. Haseeb Novoa Chloride [Moles/Vol] 96 mmol/L Critically low 98-107 The Comment on above: Performed By: #### U ACSILYA, UMICRO #### Laboratory [address] [place] [address] Dr. Haseeb Novoa CO2 [Moles/Vol] 25.3 mmol/L Normal 22.0-30.0 [facility] Comment on above: Performed By: #### U ACSIND, UMICRO #### Laboratory [address] [place] [address] Dr. Haseeb Novoa Creatinine [Mass/Vol] 1.58 mg/dL Critically high 0.52-1.04 [facility] Comment on above: Performed By: #### U MAYELA CARMONARO #### Laboratory [address] [address] [address] Haseeb Novoa EGFR-AF TRISTANIAN 40 mL/min/1.73m2 Critically low >=60 [facility] Comment on above: Performed By: #### U TITO CARMONAICRO #### Laboratory [address] [address] [address] Haseeb Novoa EGFR-NON AF TRISTANIAN 33 mL/min/1.73m2 Critically low >=60 [facility] Comment on above: Performed By: #### U TITO CARMONAICRO #### Laboratory [address] [place] [address] Dr. Haseeb Novoa Glucose [Mass/Vol] 102 mg/dL Normal 74-106 [facility] Comment on above: Performed By: #### U TITO CARMONAICRO #### Laboratory [address] [address] [address] Haseeb Novoa Potassium [Moles/Vol] 4.5 mmol/L Normal 3.4-5.0 [facility] Comment on above: Performed By: #### TITO GUPTAICRO #### Laboratory [address] [address] [address] Haseeb Novoa Sodium [Moles/Vol] 130 mmol/L Critically low 137-145 [facility] Comment on above: Performed By: #### U MATHEW UMICRO #### Laboratory [address] [address] [address] Haseeb Novoa Urea nitrogen [Mass/Vol] 32.0 mg/dL Critically high 7.0-17.0 [facility] Comment on above: Performed By: #### U MATHEW UMICRO #### Laboratory [address] [address] [address] Haseeb Novoa Urea nitrogen/Creatinine [Mass ratio] 20.3 mg/mg Normal [facility] Comment on above: Performed By: #### U MATHEW UMICRO #### Laboratory [address] [place] [address] Dr. Haseeb Novoa Vital Signs Date Time Vital Sign Value Performing Clinician Facility 06-18-2023 08:40-0400 Body height 154.9 cm Germain Sainz [facility] 06-18-2023 08:40-0400 Body mass index (BMI) [Ratio] 44.97 kg/m2 Germain Sainz MD [facility] 06-18-2023 08:40-0400 Body temperature 96.6 [degF] Germain Sainz MD Work Phone: [facility] 06-18-2023 08:40-0400 Body weight 107.96 kg Germain Sainz MD [facility] 06-18-2023 08:40-0400 Diastolic blood pressure 84 mm[Hg] Germ[facility] MD [facility] 06-18-2023 08:40-0400 Heart rate 80 /min Germain Sainz MD Work Phone: [facility] 06-18-2023 08:40-0400 Respiratory rate 16 /min Germain Sainz MD Work Phone: [facility] 06-18-2023 08:40-0400 Systolic blood pressure 126 mm[Hg] Germain Sainz MD Work Phone: [facility] 06-14-2022 16:50-0400 Body height 157.48 cm Fransisco Khalil Other [facility] Other 06-14-2022 16:50-0400 Body mass index (BMI) [Ratio] 42.98 kg/m2 Fransisco Khalil Other [facility] Other 06-14-2022 16:50-0400 Body temperature 98.7 [degF] Fransisco Khalil Other [facility] Other 06-14-2022 16:50-0400 Body weight 106.6 kg Fransisco Khalil Other [facility] Other 06-14-2022 16:50-0400 Respiratory rate 18 /min Fransisco Khalil Other [facility] Other 06-14-2022 16:50-0400 SaO2% (BldA) [Mass fraction] 95 % Fransisco Khalil Other [facility] Other 01-29-2022 13:30-0400 Body height 157.48 cm Nina Vasquezault Other [facility] Other 01-29-2022 13:30-0400 Body mass index (BMI) [Ratio] 43.53 kg/m2 Nina Marcy Other [facility] Other 01-29-2022 13:30-0400 Body temperature 98.2 [degF] Nina Marcy Other [facility] Other 01-29-2022 13:30-0400 Body weight 107.96 kg Nina Marcy Other [facility] Other 01-29-2022 13:30-0400 Respiratory rate 18 /min Nina Marcy Other [facility] Other 01-29-2022 13:30-0400 SaO2% (BldA) [Mass fraction] 99 % Nina Marcy Other [facility] Other 08-21-2021 17:25-0400 Body height 157.48 cm Nina Marcy Other [facility] Other 08-21-2021 17:25-0400 Body mass index (BMI) [Ratio] 44.81 kg/m2 Nina Vidal Other [facility] Other 08-21-2021 17:25-0400 Body temperature 97.1 [degF] Nina Vidal Other [facility] Other 08-21-2021 17:25-0400 Body weight 111.13 kg Nina Vidal Other [facility] Other 08-21-2021 17:25-0400 Respiratory rate 20 /min Nina Vidal Other [facility] Other 08-21-2021 17:25-0400 SaO2% (BldA) [Mass fraction] 97 % Nina Vidal Other [facility] Other 06-12-2021 10:15-0400 Body height 157.48 cm Shelby Tish Other [facility] Other 06-12-2021 10:15-0400 Body mass index (BMI) [Ratio] 45.17 kg/m2 Shelby Winston Other [facility] Other 06-12-2021 10:15-0400 Body temperature 97.8 [degF] Shelby Winston Other [facility] Other 06-12-2021 10:15-0400 Body weight 112.04 kg Shelby Winston Other [facility] Other 06-12-2021 10:15-0400 Diastolic blood pressure 79 mm[Hg] Shelby Winston Other [facility] Other 06-12-2021 10:15-0400 Respiratory rate 18 /min Shelby Winston Other [facility] Other 06-12-2021 10:15-0400 SaO2% (BldA) [Mass fraction] 100 % Shelby Winston Other [facility] Other 06-12-2021 10:15-0400 Systolic blood pressure 158 mm[Hg] Shelby Winston Other [facility] Other Encounters Encounter Date Encounter Type Care Provider Facility Start: 12-24-2023 End: 12-24-2023 ambulatory [facility] Start: 11-20-2023 End: 11-20-2023 ambulatory [facility] Start: 10-23-2023 End: 10-23-2023 ambulatory [facility] Start: 10-18-2023 End: 10-18-2023 ambulatory [facility] Start: 10-18-2023 Encounter for genera l adult medical examination without abnormal findings [facility] Start: 06-18-2023 End: 06-18-2023 Office outpatient visit 25 minutes Germain Sainz MD Work Phone: [facility] Comment on above: Mental retardation ( Primary Dx); Essential hypertension; Pure hypercholesterolemia; Acquired hypothyroidism Start: 06-18-2023 End: 06-18-2023 ambulatory [facility] Start: 06-14-2023 Refill Mendy Manzano [facility] Start: 06-06-2023 Telephone encounter Germain Chanel MD Work Phone: [facility] Start: 06-05-2023 Telephone encounter Ирина Chaparro [facility] Start: 04-02-2023 End: 04-02-2023 ambulatory GERMAIN SAINZ [facility] Start: 03-19-2023 End: 03-19-2023 ambulatory GERMAIN SAINZ [facility] Start: 07-20-2022 End: 07-23-2022 ambulatory UNKNOWN PROVIDER Facility:[facility] Start: 07-20-2022 End: 07-20-2022 Patient encounter procedure Neelam Rodriguez DDS Work Phone: [facility] Comment on above: Arrived Start: 06-14-2022 End: 06-14-2022 ambulatory Fransisco Khalil Other [facility] Other Start: 06-14-2022 Office outpatient vi sit 15 minutes Fransisco Khalil [facility] Start: 05-09-2022 End: 05-09-[address] GERMAIN SAINZ Facility:[facility] Start: 01-29-2022 End: 01-29-2022 ambulatory Nina Vidal Other [facility] Other Start: 01-29-2022 Office outpatient vi sit 25 minutes Nina Vidal [facility] Start: 11-27-2021 End: 11-28-2021 ambulatory [facility]AR[facility] Juarez [facility] Start: 11-27-2021 End: 11-27-2021 Subsequent hospital visit by physician Germain Sainz MD Work Phone: [facility] Comment on above: Lesion of labia Start: 10-23-2021 End: 10-23-[address] GERMAIN SAINZ Facility:[facility] Start: 10-05-2021 End: 10-05-[address] GERMAIN SAINZ Facility:[facility] Start: 08-21-2021 End: 08-21-2021 ambulatory Nina Vidal Other [facility] Other Start: 08-21-2021 Office outpatient vi sit 15 minutes Nina Vidal [facility] Start: 07-06-2021 End: 07-06-[address] GERMAIN SAINZ Facility:[facility] Start: 06-13-2021 End: 06-13-[address] GERMAIN SAINZ Facility:[facility] Start: 06-12-2021 Office outpatient vi sit 15 minutes Shelby Winston [facility] Start: 06-12-2021 End: 06-12-[address] GERMAIN SAINZ [facility] Other Procedures Date Procedure Procedure Detail Performing Clinician Start: 06-18-2023 Follow-up visit Follow-up GERMAIN SAINZ Start: 06-18-2023 Adult depression scr eening assessment Germain Sainz MD Work Phone: Start: 03-19-2023 Adult depression scr eening assessment Ирина Chaparro [facility] Start: 01-16-2023 Mammography Ирина enamorado [facility] Plan of Treatment Date Care Activity Detail Author Start: 02-23-2027 Cholesterol [Mass/vo lume] in Serum or Plasma Cholesterol [facility] Start: 06-17-2024 Adult BMI Screening Adult BMI Screen ing [facility] Start: 06-17-2024 Depression Screening Depression Scre ening [facility] Start: 06-17-2024 Tobacco Screening Tobacco Screening [facility] Start: 03-19-2024 Adult BMI Screening Adult BMI Screen ing [facility] Start: 03-19-2024 Depression Screening Depression Scre ening [facility] Start: 03-19-2024 Tobacco Screening Tobacco Screening [facility] Start: 01-17-2024 Screening for malign ant neoplasm of breast Mammogram [facility] Start: 12-30-2023 Screening for malign ant neoplasm of colon [facility] Start: 12-27-2023 Screening for malign ant neoplasm of colon Colon Cancer Screening 3 Year Cologuard [facility] Start: 11-20-2023 End: 11-20-2023 Patient encounter procedure 11/20/2023 9:15 AM EDT Office Visit [facility] [address] [place] [address] Tiffanie Ramos, ELECTRICAL LABORATORY TECHNICIAN-SEE WHEELER [address], [address] [place] [address] [facility] Start: 10-18-2023 End: 10-18-2023 Patient encounter procedure 10/18/2023 9:30 AM EDT Office Visit [facility] [address] [place] [id number] Germain Sainz MD [address] [place], [place] [id number] [facility] Start: 06-18-2023 End: 06-18-2023 Patient encounter procedure 06/18/2023 8:45 AM EDT Office Visit [facility] [address] [place] [id number] Germain Sainz MD [address] [place], [place] [id number] [facility] Start: 01-02-2023 Screening for malign ant neoplasm of breast Mammography [facility] Start: 11-30-2022 Influenza vaccination Influenza Vacc ine [facility] Start: 11-11-2022 Lipid panel Lipids [facility] Start: 12-12-2021 End: 12-12-2021 Patient encounter procedure 12/12/2021 Office Visit Obstetrics and Gynecology Sharon Harrison APRN - BECKY [address] [facility] [address] [place] [address] [facility] Start: 11-30-2021 Influenza vaccination Flu vaccine (# 1) [facility] Start: 10-23-2020 COVID-19 Vaccine (3 - Booster for Moderna series) COVID-19 Vaccine (3 - Booster for Moderna series) [facility] Start: 2011 Administration of varicella zoster vaccine Zoster (Shingles) Vaccine (1 of 2) [facility] Start: 2011 Screening for malign ant neoplasm of breast Breast cancer screen [facility] Start: 2011 Shingles (RZV) Vacci ne (1 of 2) Shingles (RZV) Vaccine (1 of 2) [facility] Start: 2011 Shingles vaccine (1 of 2) Lopez gles vaccine (1 of 2) [facility] Start: 2006 Screening for malign ant neoplasm of colon [facility] Start: 1996 Diabetes screen Diabetes screen [facility] Start: 1991 Screening for malign ant neoplasm of cervix [facility] Start: 1982 Screening for malign ant neoplasm of cervix Pap smear [facility] Start: 1980 DTaP,Tdap and Td Vac cines (1 - Tdap) DTaP,Tdap and Td Vaccines (1 - Tdap) [facility] Start: 1980 DTaP/Tdap/Td vaccine (1 - Tdap) DTaP/Tdap/Td vaccine (1 - Tdap) [facility] Start: 1979 Adult BMI Follow Up Plan Adult BMI Follow Up Plan [facility] Start: 1979 Hepatitis C screening B [facility] Start: 1979 Tetanus + diphtheria + acellular pertussis vaccine (product) Tdap Booster [facility] Start: 1976 HIV screening [facility] Start: 1973 Depression Screen Depression Screen [facility] Start: 1961 COVID-19 Vaccine (#1) COVID-19 Vacci ne (#1) [facility] Start: 1961 Basic metabolic 2000 panel - Serum or Plasma Basic Metabolic Panel [facility] Start: 1961 Screening for malign ant neoplasm of colon Colonoscopy [facility] Start: 1961 Thyroid stimulating hormone measurement TSH [facility] End: 11-27-2021 Culture, Genital [facility] Work Phone: Comment on above: 1 Occurrences starti ng 11/27/2021 until 11/27/2021 Immunizations Immunization Date Immunization Notes Care Provider Fa maame 04-10-2023 influenza, injectabl e, quadrivalent, preservative free Germain Sainz MD Work Phone: [facility] 03-16-2022 Covid-19, Mrna, Lnp- s, Bivalent, Pf, 50mcg/0.5ml or 25mcg/0.25ml Ирина [facility] 03-09-2022 Influenza, injectabl e, Madin Neyda Canine Kidney, preservative free, quadrivalent Ирина [facility] 03-09-2022 influenza virus vaccine, unspecified formulation Ирина [facility] 05-26-2020 COVID-19, mRNA, LNP- S, PF, 100mcg/0.5mL Dose Ирина [facility] 04-28-2020 COVID-19, mRNA, LNP- S, PF, 100mcg/0.5mL Dose Ирина [facility] 02-17-2020 influenza, injectabl e, quadrivalent, contains preservative Ирина [facility] 02-17-2020 influenza, seasonal, injectable, preservative free Ирина [facility] 01-22-2019 influenza, injectabl e, quadrivalent, preservative free Ирина [facility] 01-30-2018 influenza, injectabl e, quadrivalent, preservative free Ирина [facility] 05-08-2017 influenza, injectabl e, quadrivalent, preservative free Ирина [facility] 01-03-2011 influenza virus vaccine, whole virus [facility] Payers Date Payer Category Payer Medicaid [id number] 1997 Medicare MEDICARE MEDICAR E PART A & B [id number] 1997-Present [phone] [address] [place] [address] [id number] 1963 Unknown [id number] 1963 Unknown [id number] 2.16.840.1.911138.3.579.2.1286 1963 Unknown [id number] 2.16.840.1.559806.3.579.2.1286 1963 Unknown [id number] 2.16.840.1.259507.3.579.2.1286 1963 Unknown [id number] 2.16.840.1.820837.3.579.2.1286 1963 Unknown [id number] 2.16.840.1.269642.3.579.2.1286 1961 Unknown [id number] 2.16.840.1.561426.3.579.2.173 1961 Unknown [id number] 2.16.840.1.500323.3.579.2.593 1961 Unknown [id number] 2.16.840.1.314318.3.579.2.593 1961 Unknown [id number] 2.16.840.1.808493.3.579.2.593 1961 Unknown [id number] 2.16.840.1.560724.3.579.2.593 1961 Unknown [id number] 2.16.840.1.497953.3.579.2.593 1961 Unknown [id number] 2.16.840.1.854945.3.579.2.593 1961 Unknown [id number] [id number] 1961 Unknown [id number] 2.16.840.1.985979.3.579.2.1286 1961 Unknown [id number] 2.16.840.1.411628.3.579.2.1286 1958 Medicaid [id number] [id number] 1958 Medicare [id number] [id number] Social History Date Type Detail Facility Start: 04-13-2020 End: 03-19-2023 Sex Assigned At [facility] Other Start: 11-27-2021 End: 02-01-2022 Tobacco smoking status NHIS Never smoked tobacco [facility] Phone: Start: 11-27-2021 End: 02-01-2022 Tobacco use and exposure Smokeless tobacco non-user [facility] Phone: Start: 11-27-2021 Alcohol intake Lifetime non-drinker (finding) [facility] Phone: Start: 1960 Sex Assigned At Not on file [facility] Phone: Tobacco smoking stat [facility] Tobacco smoking consumption unknown [facility] Start: 03-19-2023 End: 06-18-2023 Alcohol intake Current non-drinker of alcohol (finding) [facility] Start: 04-13-2020 End: 03-19-2023 History of Social function [email or web address] Adolescent depressio n screening assessment 0 [facility] Goals Date Patient Goal Desired Activity /State Personal health goal Comment on above: Formatting of this n ote might be different from the original. Evaluation of progress towards goal: Per lining caser Haleigh; plan is for pt to return home. Clinical Notes 06-12-2021 to 06-18-2023 Germain Sainz MD - 06/18/2023 8:45 AM EDTTelephone Encounter - Germain Sainz MD - 06/06/2023 9:42 AM ESTTelephone Encounter - Mary Cheema LPN - 06/06/2023 9:42 AM EST Note Date & Type Note Facility 06-18-2023 History of Present illness Narrative Images from the original note were not included. [address] [place] [address] SUBJECTIVE: Patient ID: Manjinder Aguirre is a 63 y.o. female. 63 yo WF has benefitted from using a walker andneeds her own rollator to increase mobility, pt also has had some swallowing diffculty and speech will be seeing her and doing a speech eval, not choking, some pocketing Patient is in need of a seated rolater walker due to needing frequent rest breaks when completing ADLs Patient is able to safely use rolator in home. The following portions of the patient's history were reviewed and updated as appropriate: allergies, current medications, past family history, past medical history, past social history, past surgical history and problem list. REVIEW OF SYSTEMS: Review of Systems Constitutional: Negative. Respiratory: Negative. Cardiovascular: Negative. Gastrointestinal: Dysphagia Genitourinary: Negative. PHYSICAL EXAMINATION: Vitals: 06/18/23 0840 BP: 126/84 BP Site: Left Arm BP Postition: Sitting BP CUFF SIZE: M (9-13 inches) Pulse: 80 Resp: 16 Temp: (!) 35.9 C (96.6 F) TempSrc: Tympanic Weight: 108 kg (238 lb) Height: 154.9 cm (5' 1 ) Physical Exam Vitals and nursing note reviewed. Constitutional: Appearance: Normal appearance. HENT: Head: Normocephalic and atraumatic. Eyes: Extraocular Movements: Extraocular movements intact. Pupils: Pupils are equal, round, and reactive to light. Cardiovascular: Rate and Rhythm: Normal rate and regular rhythm. Pulses: Normal pulses. Heart sounds: Normal heart sounds. Skin: General: Skin is warm and dry. Neurological: General: No focal deficit present. Mental Status: She is alert and oriented to person, place, and time. Psychiatric: Mood and Affect: Mood normal. Behavior: Behavior normal. ASSESSMENT/PLAN: Janine was seen today for follow-up. Diagnoses and all orders for this visit: Mental retardation Essential hypertension Pure hypercholesterolemia Acquired hypothyroidism Follow-up: Rx for rollator Speech eval meds will stay same 3 months documented in this encounter [facility] 06-06-2023 Miscellaneous Notes Outside urine culture reveals Proteus and Ecoli and will need bactrim and macrobid, rx's sent to [facility] for 7 d of each Mer notified of message and verbalizes understanding documented in this encounter [facility] 06-06-2023 Telephone encounter Note Outside urine culture reveals Proteus and Ecoli and will need bactrim and macrobid, rx's sent to [facility] for 7 d of each [facility] 06-06-2023 Telephone encounter Note Mer notified of message and verbalizes understanding [facility] 06-05-[address] Sainz Preliminary Urine result does not need any action at this time. Left message with legal guardian to call the office. documented in this encounter [facility] 06-05-2023 Telephone encounter Note Per Dr Sainz Preliminary Urine result does not need any action at this time. Left message with legal guardian to call the office. [facility] 07-20-2022 History of Present illness Narrative ----- Wednesday, July 20, 2022 at 10:18:08 AM ----- ----- Provider: Jerrica Rodriguez DDS -- Clinic: [place] [address] ----- OR EVALUATION Patient presents for evaluation to determine best course of treatment due to history of Hypertension, Episodic mood disorder, MAZIN, intellectual disability. Patient is accompanied by caregiver for today's appointment. Patient partially cooperated for a partial intraoral exam. Clinical findings: Decay, Gingivitis and Missing teeth It is best suited that this patient have full comprehensive examination, radiographs and treatment completed in the OR setting. Explained that the patient will be added to our OR waiting list following receipt of signed general consent form, and the legal guardian will be contacted once a time slot becomes available. Legal Guardian: Legal Guardian: Inna Hill Beater Out: Haleigh Rich , Ext. [phone] NOTE: Patient will need restorations and dental cleaning. Next Visit: OR documented in this encounter [facility] 06-14-2022 Evaluation note Encounter Date Diagnosis Assessment Notes May, [place] eye disease of left eye (ICD-10 - H10.022) Pt to take meds as prescribed to affected eye/s. Pt to use warm compress as directed. Advised good hand washing. Wash pillow cases. Pt advised to avoid close contact with others due to the contagiousness of this. Pt to f/u with pcp as needed for persistent or worsening symptoms. Pt's associate professor plant pathology understood and agreed to treatment plan. [facility] Other 10-31-2022 Evaluation note* Encounter Date Diagnosis Assessment Notes Treatment Notes Treatment Clinical Notes Dec, Ecchymosis of neck (ICD-10 - R58) Patient needs to follow up with primary care provider or pulminologist who ordered the CPAP to determine if this has caused the bruising. I am unable to say this is cause of the bruising to neck area today. Recommend to use her PRN TYLENOL as needed for pain over the next few days with ice pack to are for comfort if patient would like to. Follow up recommended as soon as possible due to the type of injury that could be occuring from CPAP Contacted Adult care services due to presentation of injury to protect patient. [facility] Other 07-07-2022 NotePROCEDURE: XR KNEE RT 4V or > HISTORY: History of fall , weakness COMPARISON: XR knee right 11/06/2019 FINDINGS: BONES:Mild narrowing of the joint spaces and large periarticular degenerative osteophytes. No fracture, dislocation, or bone lesion. SOFT TISSUES:No visible soft tissue swelling. EFFUSION:None visible. OTHER: Negative. IMPRESSION: 1. No acute bone abnormality. 2. Moderate degenerative joint disease. Electronically authenticated by: RUSSELL MEJIA Date: 2021-10-05 10:56[facility]05-23-2022 Evaluation note* Encounter Date Diagnosis Assessment Notes Treatment Notes Treatment Clinical Notes July, Contact with and (suspected) exposure to other viral communicable diseases (ICD-10 - Z20.828) Today test was performed in office. Results are currently negative. That does not mean that you will not develop COVID or do not currently have a low viral count of COVID. The rapid test works best if symptoms have been over 72 hours and the results can vary if you are asymptomatic There is a higher chance of false negative results to occur if testing is performed too soon. It is recommended that even if results are negative and you have been exposed to someone that has COVID that you follow current CDC recommendations. These can be found at CDC.GOV. Follow up with primary care provider if symptoms persist or do not improve *VIRAL URI HANOUT GIVEN ON OTC TREATMENTS, FOLLOW UP AND WHEN TO SEEK EMERGENCY TREATMENT July, Bronchitis (ICD-10 - J40) Take medications as directed. Rest and increase fluid intake. Take meds with food to prevent stomach upset. . Follow up with primary care provider if symptoms do not improve with treatment plan, although it may take a few weeks for the cough to go away July, Other Additional time spent conducting pre-visit phone call, screening for symptoms, instructions on social distancing, application and removal of PPE, and cleaning of examination room, equipment and supplies was preformed. Patient education given for testing methodology and results. Patient care instructions given in writting by [facility] document. [facility] 03-14-2022 Evaluation note* Encounter Date Diagnosis Assessment Notes Treatment Notes Treatment Clinical Notes May, Lesion of labia (ICD-10 - N90.89) Keep the area clean and dry, go to the emergency room for further and more appropriate evaluation of this wound. [employer] Other Evaluation note* Diagnosis Lesion of labia Other specified noninflammatory disorder of vulva and perineum documented in this encounter AZIZA BLAKE [email or web address] Work Phone: evaluation note* Diagnosis Mental retardation- Primary Unspecified mental retardation Essential hypertension Unspecified essential hypertension Pure hypercholesterolemia Acquired hypothyroidism Unspecified hypothyroidism [facility] filedocumented in this encounter [facility] filedocumented in [facility]* Attachments The following attachments cannot be sent through Care Everywhere. * Hypothyroidism (underactive thyroid) ([place]) documented [facility] this [facility] Advance Directives No Advanced Directives Records FoundDocuments on File Type Date Recorded Patient Litigation Support Analyst Expl anation ACP-Guardianship 11/24/2021 11:06 AM enrique Colvin Latest Code Status on File Code Status Date Activated Date Inactivated Comments Full Code 03/21/2021 1:44 AM 03/22/2021 5:06 PM Summary Purpose Family History No Family History Records FoundNo Family History Records FoundNo Family History Records FoundNo Family History Records FoundNo Family History Records Found Additional Source Comments REASON FOR VISIT (unrecogniz ed section and content) Reason Onset Date Comments Med Refill 06/14/2023 Reason Comments Follow-up Care Teams (unrecognized sec tion and content) Dry Cleaner Hand Relationship Specialty Start Date End Date Germain Sainz MD [address] [place] [address] PCP - General Family Medicine 11/27/21 Dry Cleaner Hand Relationship Specialty Start Date End Date Germain Sainz MD [address] [place] [address] PCP - General Family Medicine 12/28/21 Dry Cleaner Hand Relationship Specialty Start Date End Date Germain Sainz MD [address] [place] [address] PCP - General Family Medicine 12/28/21 Dry Cleaner Hand Relationship Specialty Start Date End Date Germain Sainz MD [address] [place] [address] PCP - General Family Medicine 12/28/21 Dry Cleaner Hand Relationship Specialty Start Date End Date Germain Sainz MD [address] [place] [address] PCP - General Family Medicine 12/28/21 INFORMATION SOURCE (unrecogn ized section and content) DATE CREATED AUTHOR 12/01/2021 [facility] DATE CREATED AUTHOR AUTHOR'S ORGANIZ ATION 05/11/2022 [facility] DATE CREATED AUTHOR AUTHOR'S ORGANIZ ATION 07/24/2022 [facility] DATE CREATED AUTHOR AUTHOR'S ORGANIZ ATION 11/21/2023 [facility] DATE CREATED AUTHOR AUTHOR'S ORGANIZ ATION 12/26/2023 [facility] FOR RECORDS PERTAINING TO PATIENTS WHO ARE OR HAVE BEEN ENROLLED IN A CHEMICAL DEPENDENCY/SUBSTANCEABUSE PROGRAM, SOME INFORMATION MAY BE OMITTED. This clinical summary was aggregated from multiple sources. Caution should be exercised in using it in the provision of clinical care. This summary normalizes information from multiple sources, and as a consequence, information in this document may materially change the coding, format and clinical context of patient data. In addition, data may be omitted in some cases. CLINICAL DECISIONS SHOULD BE BASED ON THE PRIMARY CLINICAL RECORDS. [facility]. provides no warranty or guarantee of the accuracy or completeness of information in this document.
[2024-01-07 16:16] LABS: Basophils Percent Auto 0.4 % (0.2-2.0); Eosinophils Absolute Auto 0.1 10^3/uL (0.0-0.7); Eosinophils Percent Auto 1.1 % (0.9-7.0); Hematocrit 38.9 % (36.0-48.0); Hemoglobin 12.6 g/dL (12.0-16.0); Immature Granulocytes Abs Auto 0.02 10^3/uL (0.00-0.03); Immature Granulocytes Pct Auto 0.2 % (0.0-0.5); Lymphocytes Absolute Auto 2.5 10^3/uL (1.2-3.8); Lymphocytes Percent Auto 29.7 % (20.5-60.0); Mean Corpuscular HGB Conc 32.4 g/dL (29.9-35.2); Mean Corpuscular Hemoglobin 28.5 pg (26.7-34.0); Mean Platelet Volume 8.8 fL (9.5-13.5); Monocytes Absolute Auto 0.9 10^3/uL (0.3-0.8); Monocytes Percent Auto 11.1 % (1.7-12.0); Neutrophils Absolute Auto 4.8 10^3/uL (1.4-6.5); Neutrophils Percent Auto 57.5 % (43.0-75.0); Platelet Count 292 10^3/uL (150-450); Red Blood Count 4.42 10^6/uL (4.20-5.40); Red Cell Distribution Width 13.7 % (11.0-15.0); White Blood Count 8.3 10^3/uL (4.0-11.0)
[2024-01-07] MEDS: 0.9 % SODIUM CHLORIDE 1,000 ML 999 ML IV (16:16)
[2024-01-07 16:30] LABS: Alanine Aminotransferase 17 U/L (14-59); Albumin Globulin Ratio 0.9; Albumin Level 3.4 g/dL (3.4-5.0); Alkaline Phosphatase 78 U/L (46-116); Anion Gap 17.6; Aspartate Amino Transferase 18 U/L (15-37); BUN Creatinine Ratio 17.3; Bilirubin Total 0.4 mg/dL (0.2-1.0); Calcium 9.9 mg/dL (8.5-10.1); Chloride 98 mmol/L (98-107); Estimated GFR (African America 49 (>=60 mL/min/1.73m^2); Estimated GFR (Non-African Ame 40 (>=60 mL/min/1.73m^2); Globulin 3.7 g/dL; Glucose 99 mg/dL (74-106); Magnesium 2.1 mg/dL (1.8-2.4); Potassium 4.6 mmol/L (3.5-5.1); Sodium 133 mmol/L (136-145); Total Protein 7.1 g/dL (6.4-8.2)
--- NOTE | 2024-01-07 16:43 | ED.GENADUL1 ---
HPI HPI - General Adult General Chief complaint: GI Bleed Stated complaint: General Weakness Time Seen by Provider: 01/07/24 15:52 Source: caregiver Mode of arrival: walk-in Limitations: altered mental status History of Present Illness HPI narrative: 63-year-old female presents with caregiver with report of abdominal pain and bright red rectal bleeding. Caregiver says she had 2 episodes today. Patient with history of developmental delay and history from patient is severely limited. Patient points to the left side of her abdomen as the source of her pain. Caregiver denies any fevers, vomiting. Caregiver states she does have history of hemorrhoids. Quality:? as above Severity:?moderate Timing:?as above Context: Normal setting and activity? Modifying factors:?none Associated symptoms: as above Related Data Home Medications ?Medication ?Instructions ?Recorded ?Confirmed acetaminophen 500 mg tablet 1,000 mg PO Q6H PRN fever or pain 01/07/24 01/07/24 buspirone 15 mg tablet 15 mg PO DAILY 01/07/24 01/07/24 buspirone 5 mg tablet 5 mg PO DAILY 01/07/24 01/07/24 citalopram 40 mg tablet 40 mg PO .qhs 01/07/24 01/07/24 divalproex 125 mg capsule,delayed 375 mg PO Q12H 01/07/24 01/07/24 release sprinkle ibuprofen 800 mg tablet 800 mg PO Q6H PRN fever or pain 01/07/24 01/07/24 lamotrigine 100 mg tablet 50 mg PO .qhs 01/07/24 01/07/24 lamotrigine 25 mg tablet 100 mg PO .qhs 01/07/24 01/07/24 levothyroxine 75 mcg tablet 75 mcg PO DAILY 01/07/24 01/07/24 losartan 25 mg tablet 50 mg PO QDAY 01/07/24 01/07/24 lurasidone 60 mg tablet 60 mg PO .qhs 01/07/24 01/07/24 metoprolol succinate 100 mg 100 mg PO DAILY 01/07/24 01/07/24 tablet,extended release 24 hr simvastatin 40 mg tablet 40 mg PO DAILY 01/07/24 01/07/24 Previous Rx's ?Medication ?Instructions ?Recorded hydrocortisone 2.5 % topical cream 1 applic [place] DAILY PRN hemorrhoids 10/08/24 with perineal applicator #30 grams (Anusol-HC) Allergies Allergy/AdvReac Type Severity Reaction Status Date / Time No Known Drug Allergies Allergy Verified 01/07/24 15:43 Opioid HPI Opioid Management Most Recent Opioid Data: No Data to Display Review of Systems ROS Narrative ROS Limited due to developmental delay GI: +abd pain, BRB.? Denies any vomiting, diarrhea Exam Narrative Exam Narrative: Vital signs reviewed Nurses notes noted CONST: Nontoxic, well appearing, well nourished, in no distress.? No diaphoresis.?? HENT: normocephalic, atraumatic, moist mucous membrane, no abnormalities of the nose noted, hearing normal EYES: normal appearing conjunctiva, no apparent discharge bilat NECK: normal appearance CV: normal rate, regular rhythm, no murmur RESP: normal effort, speaking in complete sentences. Lung sounds clear and equal bilat.? No wheezes, rales, rhonchi GI: normal bowel sounds, soft, no distension, + mild tenderness LUQ : no CVA tenderness. Rectal examination performed under direct supervision of LOULOU Martinez. Patient had urinated on herself prior to evaluation. There was some stool on the outside of the rectum. This was sent to the lab for further testing. Did not appear grossly bloody. She does have several external hemorrhoids that are soft, no appearance of thrombosed MS: no edema, tenderness SKIN: no pallor NEURO: A&Ox 3, no focal findings PSYCH: normal mood, affect Constitutional Vital Signs, click to edit/add: Last Vital Signs Temp 98 F 01/07/24 15:39 Pulse 62 01/07/24 19:13 Resp 18 01/07/24 19:13 BP 158/71 H 01/07/24 19:13 Pulse Ox 100 01/07/24 19:13 O2 Del Method Room Air 01/07/24 15:39 Course Vital Signs Vital signs: Vital Signs Temperature 98 F 01/07/24 15:39 Pulse Rate 70 01/07/24 15:39 Respiratory Rate 20 01/07/24 15:39 Blood Pressure 154/90 H 01/07/24 15:39 Pulse Oximetry 99 01/07/24 15:39 Oxygen Delivery Method Room Air 01/07/24 15:39 Temperature 98 F 01/07/24 15:39 Pulse Rate 62 01/07/24 19:13 Respiratory Rate 18 10/08/24 19:13 Blood Pressure 158/71 H 01/07/24 19:13 Pulse Oximetry 100 01/07/24 19:13 Oxygen Delivery Method Room Air 01/07/24 15:39 Medical Decision Making MDM Narrative Medical decision making narrative: This is a pleasant 63-year-old female who presented with caregiver for evaluation of rectal bleeding. Patient has developmental delay and history from patient is severely limited. She has complained of some abdominal discomfort, located in the left upper quadrant. Caregiver states she has history of hemorrhoids. Noted the blood to be bright red and showed a picture. Denies any known fevers, vomiting. On arrival, afebrile, vital signs are stable. On exam, Nontoxic patient in no distress. Abdomen is soft with some mild tenderness to the left upper quadrant without rebound or guarding. Labs reveal no leukocytosis, anemia, thrombocytopenia, electrolyte imbalance. BUN 23, creatinine 1.33. Urinalysis showed no evidence of infection. CT abdomen pelvis imaging, per radiologist reveals no acute findings History and record review Discussion with independent historian: Caregiver Additional record review: No prior records Management Additional testing interventions: IV fluids: Hydration patient remained stable during ED course Favor brb rectal bleeding, hemorrhoids, abd pain Diverticulitis less likely based on imaging Anemia due to blood loss rectal bleeding less likely based on lab testing Disposition ? The patient was discharged. Plan: Patient will be discharged to home. Condition at time of disposition: stable Prescription for Anusol cream sent to her Advised to follow up with primary provider. Advised to return for any worsening and/or development of new, concerning signs or symptoms PLEASE NOTE: Portions of the medical record may have been produced using electronic systems security consultant and may contain errors with respect to translation of words which may not have been identified prior to finalization of the chart. Medical Records Medical records reviewed: Yes I reviewed the patient's medical records Lab Data Lab results reviewed: Yes I reviewed the patient's lab results Labs: Lab Results 01/07/24 01/07/24 Range/Units 16:10 18:42 WBC 8.3 (4.0-11.0) 10^3/uL RBC 4.42 (4.20-5.40) 10^6/uL Hgb 12.6 (12.0-16.0) g/dL Hct 38.9 (36.0-48.0) % MCV 88.0 (81.0-99.0) fL MCH 28.5 (26.7-34.0) pg MCHC 32.4 (29.9-35.2) g/dL RDW 13.7 (11.0-15.0) % Plt Count 292 (150-450) 10^3/uL MPV 8.8 L (9.5-13.5) fL Neut % (Auto) 57.5 (43.0-75.0) % Lymph % (Auto) 29.7 (20.5-60.0) % [place] % (Auto) 11.1 (1.7-12.0) % Eos % (Auto) 1.1 (0.9-7.0) % Baso % (Auto) 0.4 (0.2-2.0) % Neut # (Auto) 4.8 (1.4-6.5) 10^3/uL Lymph # (Auto) 2.5 (1.2-3.8) 10^3/uL [place] # (Auto) 0.9 H (0.3-0.8) 10^3/uL Eos # (Auto) 0.1 (0.0-0.7) 10^3/uL Baso # (Auto) 0.0 (0.0-0.1) 10^3/uL Abs Immat Gran (auto) 0.02 (0.00-0.03) 10^3/uL Imm/Tot Granulo (auto) 0.2 (0.0-0.5) % Sodium 133 L (136-145) mmol/L Potassium 4.6 (3.5-5.1) mmol/L Chloride 98 (98-107) mmol/L Carbon Dioxide 22.0 (21.0-32.0) mmol/L Anion Gap 17.6 BUN 23.0 H (7.0-18.0) mg/dL Creatinine 1.33 H (0.55-1.02) mg/dL Est GFR ( Amer) 49 L (>=60 mL/min/1.73m^2) Est GFR (Non-Af Amer) 40 L (>=60 mL/min/1.73m^2) BUN/Creatinine Ratio 17.3 Glucose 99 (74-106) mg/dL Calcium 9.9 (8.5-10.1) mg/dL Magnesium 2.1 (1.8-2.4) mg/dL Total Bilirubin 0.4 (0.2-1.0) mg/dL AST 18 (15-37) U/L ALT 17 (14-59) U/L Alkaline Phosphatase 78 (46-116) U/L Total Protein 7.1 (6.4-8.2) g/dL Albumin 3.4 (3.4-5.0) g/dL Globulin 3.7 g/dL Albumin/Globulin Ratio 0.9 Lipase 27.0 (16.0-77.0) U/L Urine Color Lt. yellow (YELLOW) Urine Clarity Clear (CLEAR) Urine pH 5.5 (5.0-9.0) Ur Specific [place] <=1.005 A (1.005-1.025) Urine Protein Negative (NEG/TRACE) mg/dL Urine Glucose (UA) Negative (NEGATIVE) mg/dL Urine Ketones Negative (NEGATIVE) mg/dL Urine Occult Blood Moderate A (NEGATIVE) Urine Nitrite Negative (NEGATIVE) Urine Bilirubin Negative (NEGATIVE) Urine Urobilinogen 0.2 (0.2-1.0) EU/dL Ur Leukocyte Esterase Trace A (NEGATIVE) Urine RBC 5-10 A (0-2) #/HPF Urine WBC 0-2 A (NONE SEEN) #/HPF Ur Squamous Epith Cells Few A (NONE/RARE) #/LPF Urine Crystals None seen (None Seen) #/HPF Urine Bacteria Trace A (NONE SEEN) #/HPF Urine Casts None seen (NONE SEEN) #/LPF Urine Mucus None seen (NONE SEEN) Imaging Data CT scan - abdomen: Radiologist's impression: ITS Impressions Abdomen/Pelvis CT 01/07/24 16:46 IMPRESSION: No acute abnormality in the abdomen or pelvis. Electronically authenticated by: NAE DAY Date: 01/07/2024 17:30 Discharge Plan Discharge Chief Complaint: GI Bleed Clinical Impression: Rectal bleed Abdominal pain Qualifiers: Abdominal location: left upper quadrant Qualified Code(s): R10.12 - Left upper quadrant pain Hemorrhoids Qualifiers: Hemorrhoid type: unspecified Qualified Code(s): K64.9 - Unspecified hemorrhoids Patient Disposition: Home, Self-Care Time of Disposition Decision: 19:20 Condition: Good Mode of Transportation: Private Vehicle Prescriptions / Home Meds: New hydrocortisone [Anusol-HC] 2.5 % cream with perineal applicator 1 applic [place] DAILY PRN (Reason: hemorrhoids) Qty: 30 0RF No Action buspirone 15 mg tablet 15 mg PO DAILY buspirone 5 mg tablet 5 mg PO DAILY citalopram 40 mg tablet 40 mg PO .qhs divalproex 125 mg capsule, delayed rel sprinkle 375 mg PO Q12H lamotrigine 100 mg tablet 50 mg PO .qhs lamotrigine 25 mg tablet 100 mg PO .qhs levothyroxine 75 mcg tablet 75 mcg PO DAILY losartan 25 mg tablet 50 mg PO QDAY lurasidone 60 mg tablet 60 mg PO .qhs simvastatin 40 mg tablet 40 mg PO DAILY metoprolol succinate 100 mg tablet extended release 24 hr 100 mg PO DAILY acetaminophen 500 mg tablet 1,000 mg PO Q6H PRN (Reason: fever or pain) ibuprofen 800 mg tablet 800 mg PO Q6H PRN (Reason: fever or pain) Print Language: Yoruba Instructions: Hemorrhoids (ED), Abdominal Pain (ED) Referrals: GERMAIN PRUETT [Primary Care Provider] - 1 week Discharge Date/Time: 01/07/24 19:45
--- NOTE | 2024-01-07 16:46 | CT_ITS ---
The [address] [address] Patient Name: MANJINDER CASEY MRN: [id number] date: 1960 Sex: F Assigned Patient Location: ER Current Patient Location: ED.MAIN Accession/Order Number: [id number] Exam Date: 01/07/2024 16:40 Report Date: 01/07/2024 17:30 At the request of: GONZALEZ HAWK Procedure: CT abdomen pelvis w con CT ABDOMEN/PELVIS WITH IV CONTRAST. INDICATION: left sided abd pain. COMPARISON: There are no other studies available for comparison. TECHNIQUE: Contiguous axial images were obtained from the lung bases to the pelvic floor following the intravenous administration of contrast. Coronal and sagittal reformations are provided. FINDINGS: LOWER LUNGS: Clear. LIVER/BILIARY TREE: No mass. No intrahepatic ductal dilatation. GALLBLADDER: No significant gallbladder wall thickening. No radiopaque stone. CBD: Normal CBD. SPLEEN: Normal in size. PANCREAS: No acute findings. No peripancreatic fluid or inflammation. No pancreatic duct dilatation. No discrete mass. ADRENALS: Normal. KIDNEYS: No hydronephrosis. No radiopaque calculus. STOMACH AND BOWEL: Stomach is unremarkable. No dilated bowel loops. No bowel wall thickening. APPENDIX: Normal appendix. PERITONEAL CAVITY: No fluid. No fat stranding. ABDOMINAL WALL: No subcutaneous stranding. No subcutaneous fluid collection. LYMPH NODES: No mesenteric or retroperitoneal lymphadenopathy by CT criteria. ABDOMINAL AORTA: No aneurysm. PELVIS: No acute abnormality. MUSCULOSKELETAL: No acute osseous abnormality. CT/CT abdomen pelvis w con IMPRESSION: No acute abnormality in the abdomen or pelvis. Electronically authenticated by: NAE DAY Date: 01/07/2024 17:30
[2024-01-07 18:48] LABS: Bilirubin Urine NEGATIVE (NEGATIVE); Blood Urine MODERATE (NEGATIVE); Clarity Urine CLEAR (CLEAR); Color Urine LT. YELLOW (YELLOW); Glucose Urine UA NEGATIVE (NEGATIVE); Ketones Urine NEGATIVE (NEGATIVE); Leukocyte Esterase Urine TRACE (NEGATIVE); Nitrite Urine NEGATIVE (NEGATIVE); Protein Urine NEGATIVE (NEG/TRACE); Specific Gravity Urine <=1.005 (1.005-1.025); Urobilinogen Urine 0.2 EU/dL (0.2-1.0); pH Urine 5.5 (5.0-9.0)
[2024-01-07 18:53] LABS: WBC Urine 0-2 #/HPF (NONE SEEN)
[2024-01-07 18:54] LABS: Bacteria Urine TRACE #/HPF (NONE SEEN); Cast Seen? NONE SEEN #/LPF (NONE SEEN); Crystals Seen? None Seen #/HPF (None Seen); Mucus Urine NONE SEEN (NONE SEEN); Squamous Epithelial Cell Urine FEW #/LPF (NONE/RARE)
[2024-01-07 19:13] VITALS: BP 158/71; PULSE 62; O2SAT 100
== END 2024-01-07 19:45 | disposition home or self-care (01) ==
PROVIDERS: Physician Assistant; Emergency Provider Student in an Organized Health Care Education/Training Program; PCP Family Medicine
DX: K62.5 Hemorrhage of anus and rectum (principal); R10.12 Left upper quadrant pain; K64.9 Unspecified hemorrhoids
CPT/HCPCS: 36415; 74177; 80053; 81001; 83690; 83735; 85025; 99285; Q9967